=== PATIENT | male | born 1955 | race Caucasian/White ===

== ENCOUNTER 2021-01-09 00:50 | Emergency (ER) | payer SELFPAY ==
[~2021-01-09] VITALS: Ht 182.9 cm; Wt 90.9 kg
[2021-01-09 06:09] VITALS: BP 166/70
== END 2021-01-09 06:39 | disposition left against medical advice (07) ==
LOC: M ED 00:50
DX: Z53.21 Procedure and treatment not carried out due to patient leaving prior to being seen by health care provider (principal)